=== PATIENT | male | born 1960 | race Caucasian/White ===

== ENCOUNTER 2016-12-29 15:06 | Inpatient (IN) | payer BC, OTHER ==
[~2016-12-29] VITALS: Ht 180.3 cm; Wt 105.1 kg
[~2016-12-29 15:06] MED LIST: ADVIL200 MG PO; LOSARTAN-HCTZ1 EAC1 PO; OMEPRAZOLE40 M1 PO
[2016-12-29 15:45] LABS: EOSINOPHIL (%) 4.6 % (0-5); EOSINOPHIL COUNT 0.3 K/uL (0-0.3); HEMATOCRIT 37.3 % (38.0-50.0); IMMATURE GRANULOCYTE (%) 0.4 % (0.0-0.7); LYMPHOCYTE COUNT 1.1 K/uL (1.0-2.8); MCHC 35.1 G/DL (30.0-36.0); MCV 91.2 FL (86-99); MEAN PLAT.VOLUME 10.5 uM^3 (9.0-12.4); MONOCYTE (%) 5.8 % (3-12); MONOCYTE COUNT 0.4 K/uL (0-0.8); NEUTROPHIL (%) 72.4 % (45-76); PLATELET COUNT 188 K/uL (156-360); RBC DIS.WIDTH-SD 39.9 % (39-53); RED BLOOD COUNT 4.09 M/uL (4.00-5.50); WHITE BLOOD COUNT 6.9 K/uL (4.1-10.2)
[2016-12-29 15:56] LABS: CHLORIDE 104 mEq/L (99-109); SODIUM 139 mEq/L (136-147)
[2016-12-29 15:58] LABS: GLUCOSE 140 mg/dL (70-99)
[2016-12-29 15:59] LABS: ANION GAP 12 MEQ/L (2-14)
[2016-12-29 16:00] LABS: TOTAL BILIRUBIN 0.3 mg/dL (0.0-1.0)
[2016-12-29 16:01] LABS: SERUM ETHYL ALCOHOL < 10 mg/dL
[2016-12-29 16:02] LABS: GFR ESTIMATE (CALCULATED) > 59 mL/min/
[2016-12-29 16:03] LABS: ALKALINE PHOSPHATASE 69 IU/L (3-129)
[2016-12-29 16:04] LABS: UREA NITROGEN (BUN) 21 mg/dL (9-23)
[2016-12-29 16:05] LABS: SALICYLATE < 5.0 MG/DL (15-30)
[2016-12-29 16:06] LABS: TROP-I INTERPRETATION NEGATIVE; TROPONIN-I 0.01 ng/mL (0.0-0.30)
[2016-12-29 16:07] LABS: LIPASE 14 U/L (1.0-51.0)
[2016-12-29 17:02] LABS: AMPHETAMINE NEGATIVE (500 ng/mL); BARBITURATES NEGATIVE (200 ng/mL); BENZODIAZEPINES NEGATIVE (150 ng/mL); COCAINE NEGATIVE (150 ng/mL); INTERNAL CONTROLS VALID? YES; METHADONE NEGATIVE (200 ng/mL); METHAMPHETAMINE NEGATIVE (500 ng/mL); OPIATES (MORPHINE) NEGATIVE (100 ng/mL); OXYCODONE NEGATIVE (100 ng/mL); PHENCYCLIDINE NEGATIVE (25 ng/mL); PROPOXYPHENE NEGATIVE (300 ng/mL); THC CANNABINOIDS PRESUMPTIVE POSITIVE (50 ng/mL); TRICYCLIC ANTIDEPRESSANTS NEGATIVE (300 ng/mL)
[2016-12-29 17:03] LABS: ADD MEDTOX COMMENT Y
[2016-12-29] MEDS ORDERED: DEXILANT60 MG PO (17:53)
[2016-12-29 20:55] VITALS: BP 110/64
[2016-12-29 23:35] VITALS: BP 107/62
[2016-12-30 03:52] VITALS: BP 107/60
[2016-12-30 08:37] VITALS: BP 123/74
[2016-12-30 11:30] VITALS: BP 115/75
[2016-12-30 16:15] VITALS: BP 112/69
[2016-12-30 19:44] VITALS: BP 123/85
[2016-12-31 00:24] VITALS: BP 117/77
[2016-12-31 04:26] VITALS: BP 127/79
[2016-12-31 07:40] VITALS: BP 126/85
[2016-12-31] MEDS ORDERED: LEVETIRACETAM500 MG PO (10:20)
[2016-12-31] MEDS ORDERED: SIMVASTATIN20 MG PO (10:42)
== END 2016-12-31 12:18 | disposition home or self-care (01) | DRG 101 ==
LOC: EME 15:06 → 3EAST 18:28 → EDOF 18:28 → 3EAST 20:17
PROVIDERS: Emergency Medicine
DX: R56.9 Unspecified convulsions (principal); R41.82 Altered mental status, unspecified; E78.5 Hyperlipidemia, unspecified; M54.5 Low back pain; M19.90 Unspecified osteoarthritis, unspecified site; I10 Essential (primary) hypertension
CPT/HCPCS: 36600; 70450; 70551; 71010; 80053; 82803; 83605; 83690; 84484; 84999; 85025; 93005; 95819; 99281; 99285; G0480; J1644; J1953; J2060; J2310; J7030; J7050

== ENCOUNTER 2017-10-15 20:17 | Emergency (ER) | payer BC, OTHER ==
[~2017-10-15] VITALS: Ht 154.9 cm; Wt 101.5 kg
[~2017-10-15 20:17] MED LIST changes: +DEXILANT60 MG PO; +LEVETIRACETAM500 MG PO; +SIMVASTATIN20 MG PO
[2017-10-16 01:19] LABS: BASOPHIL (%) 0.4 % (0-1); BASOPHIL COUNT 0.1 K/uL (0-0.1); EOSINOPHIL (%) 0.8 % (0-5); EOSINOPHIL COUNT 0.1 K/uL (0-0.3); HEMATOCRIT 39.1 % (38.0-50.0); HEMOGLOBIN 13.8 G/DL (12.5-16.6); IMMATURE GRANULOCYTE (%) 0.6 % (0.0-0.7); LYMPHOCYTE COUNT 2.1 K/uL (1.0-2.8); MCHC 35.3 G/DL (30.0-36.0); MCV 90.7 FL (86-99); MONOCYTE (%) 8.4 % (3-12); NEUTROPHIL (%) 72.8 % (45-76); PLATELET COUNT 254 K/uL (156-360); RBC DIS.WIDTH-CV 12.2 % (11.8-14.6); RBC DIS.WIDTH-SD 40.8 % (39-53); RED BLOOD COUNT 4.31 M/uL (4.00-5.50); WHITE BLOOD COUNT 12.3 K/uL (4.1-10.2)
[2017-10-16 01:28] LABS: CHLORIDE 97 mEq/L (99-109); POTASSIUM 3.9 mEq/L (3.7-5.4); SODIUM 135 mEq/L (136-147)
[2017-10-16 01:30] LABS: GLUCOSE 127 mg/dL (70-99)
[2017-10-16 01:34] LABS: CREATININE 1.1 mg/dL (0.6-1.3); GFR ESTIMATE (CALCULATED) > 59 mL/min/ (58.99-99999)
[2017-10-16 01:35] LABS: UREA NITROGEN (BUN) 19 mg/dL (9-23)
[2017-10-16 01:36] LABS: URIC ACID 9.8 mg/dL (3.1-9.2)
[2017-10-16] MEDS ORDERED: INDOCIN50 MG PO (02:17)
[2017-10-16] MEDS ORDERED: PERCOCET 5/31 TABLET PO (02:17)
[2017-10-16 02:24] LABS: ERTH.SED.RATE 62 MM/HR (0-20)
[2017-10-16 02:27] VITALS: BP 134/82
[2017-10-16 04:03] LABS: C-REACTIVE PROTEIN 53.1 MG/L (0-10)
== END 2017-10-16 02:28 | disposition home or self-care (01) ==
LOC: EME 20:17
PROVIDERS: Physician Assistant
DX: M10.9 Gout, unspecified (principal); Z88.0 Allergy status to penicillin; Z87.891 Personal history of nicotine dependence
CPT/HCPCS: 80048; 84550; 85025; 85652; 86140; 99281; 99284; J1885; J3010

== ENCOUNTER 2018-01-19 19:18 | Emergency (ER) | payer BC, OTHER ==
[~2018-01-19] VITALS: Ht 180.3 cm; Wt 99.9 kg
[~2018-01-19 19:18] MED LIST changes: +INDOCIN50 MG PO; +PERCOCET 5/31 TABLET PO
[2018-01-19] MEDS ORDERED: INDOCIN50 MG PO (20:40)
[2018-01-19 20:58] VITALS: BP 158/91
== END 2018-01-19 20:59 | disposition home or self-care (01) ==
LOC: EME 19:18
DX: M10.9 Gout, unspecified (principal); Z88.0 Allergy status to penicillin
CPT/HCPCS: 99281; 99284; J1100

== ENCOUNTER 2018-05-09 07:04 | Emergency (ER) | payer OTHER, BC ==
[~2018-05-09] VITALS: Ht 180.3 cm; Wt 99.1 kg
[2018-05-09] MEDS ORDERED: INDOMETHACIN50 MG PO (07:53)
[2018-05-09 08:04] VITALS: BP 149/109
== END 2018-05-09 08:05 | disposition home or self-care (01) ==
LOC: EME 07:04
DX: M10.9 Gout, unspecified (principal); M25.531 Pain in right wrist; I10 Essential (primary) hypertension; Z88.0 Allergy status to penicillin
CPT/HCPCS: 99281; 99283; J1100; J1885